=== PATIENT | male | born 1940 | race Caucasian/White ===

== ENCOUNTER 2021-04-16 15:29 | Inpatient (IN) ==
[2021-04-17] MEDS ORDERED: ALBUTEROL 2.5 MG/3 ML NEB RESP TX PRN (07:51)
[2021-04-17] MEDS ORDERED: ONDANSETRON 4 MG/2 ML VIAL IV PRN (07:51)
[2021-04-17] MEDS: PANTOPRAZOLE 40 MG VIAL IV SCH (09:08)
[2021-04-18 04:38] LABS: ABG Base Excess -21.5 MMOL/L (-2.5-2.5); ABG HCO3 6.6 MMOL/L (20-26); ABG PCO2 21.9 MM HG (35-48); ABG PO2 214.8 MM HG (80-95); ABG TCO2 7.2 MMOL/L (23-27); Allen Test Positive; Pt O2 Delivery Device Ventilator
[2021-04-18 04:42] LABS: ABG PH 7.094 (7.35-7.45)
[2021-04-18] MEDS ORDERED: SODIUM BICARBONATE 50 MEQ/50 ML VIAL IV ONE ×2 (04:45→10:06)
[2021-04-18 06:55] LABS: Basophils % 0.1 % (0.0-0.8); Hematocrit 30.7 VOL% (42.0-52.0); Hemoglobin 9.9 GM/DL (14.0-18.0); Immature Granulocytes % 0.5 %; Immature Granulocytes Absolute 0.07 #; Lymphocytes # 0.2 10*3/uL (1.4-4.0); Lymphocytes % 1.2 % (21.2-54.2); Mean Corpuscular HGB Conc 32.2 GM/DL (32-36); Mean Corpuscular Volume 94.8 FL (87-102); Mean Platelet Volume 13.9 FL (9.6-12.0); Monocytes % 2.6 % (1.7-12.7); Neutrophils % 95.6 % (38.7-73.9); Platelet Count 95 T/CUMM (130-400); Red Blood Count 3.24 MC/CUMM (3.8-5.5); Red Cell Distribution Width 17.2 % (9.3-17.3)
[2021-04-18 06:59] LABS: INR 1.1; PT Patient Result 11.9 SECS (10.5-12.0)
[2021-04-18 07:21] LABS: Band Neutrophils 1 % (0-10); Lymphocytes 4 % (20-55); Platelet Estimate Decreased; Segmented Neutrophils 92 % (50-85); Total Cells Counted 100
[2021-04-18 07:22] LABS: Hypochromasia Slight; Microcytosis Slight
[2021-04-18] MEDS: PANTOPRAZOLE 40 MG VIAL IV SCH (08:35)
[2021-04-18] MEDS: SODIUM BICARB INJ 100 MEQ in DEXTROSE 5% NACL 0.45% 1,000 ML IV SCH ×2 (08:42→19:50)
[2021-04-18 09:41] LABS: Albumin 1.4 G/DL (3.4-5.0); Bilirubin,Total 0.4 MG/DL (0.2-1.0); Calcium 8.3 MG/DL (8.5-10.1); Total Protein 5.2 G/DL (6.4-8.2)
[2021-04-18 09:53] LABS: Osmolality,Calculated 312.1 MOS/KG (273-304)
[2021-04-18] MEDS: MEROPENEM 500 MG in SODIUM CHLORIDE 0.9% 100 ML IV SCH ×3 (09:56→20:53)
[2021-04-18] MEDS ORDERED: SODIUM POLYSTYRENE SULFATE 15 GM/60 ML BOTTLE PO ONE (13:30)
[2021-04-18 17:21] LABS: Calcium 7.5 MG/DL (8.5-10.1)
[2021-04-18 17:22] LABS: Osmolality,Calculated 323.4 MOS/KG (273-304)
[2021-04-18 17:23] LABS: Potassium 6.3 MMOL/L (3.5-5.1)
[2021-04-19] MEDS: MEROPENEM 500 MG in SODIUM CHLORIDE 0.9% 100 ML IV SCH (03:01)
[2021-04-19 04:02] LABS: ABG Base Excess -12.4 MMOL/L (-2.5-2.5); ABG HCO3 13.1 MMOL/L (20-26); ABG Oxygen Saturation 93.5 % (95-100); ABG PCO2 28.6 MM HG (35-48); ABG PH 7.278 (7.35-7.45); ABG PO2 73.3 MM HG (80-95)
[2021-04-19 05:33] LABS: Basophils % 0.1 % (0.0-0.8); Hematocrit 29.5 VOL% (42.0-52.0); Immature Granulocytes % 0.9 %; Immature Granulocytes Absolute 0.09 #; Lymphocytes # 0.1 10*3/uL (1.4-4.0); Lymphocytes % 1.3 % (21.2-54.2); Mean Corpuscular HGB Conc 30.5 GM/DL (32-36); Mean Corpuscular Volume 100.7 FL (87-102); Mean Platelet Volume 13.3 FL (9.6-12.0); Monocytes % 1.4 % (1.7-12.7); Neutrophils % 96.3 % (38.7-73.9); Platelet Count 71 T/CUMM (130-400); Red Blood Count 2.93 MC/CUMM (3.8-5.5); Red Cell Distribution Width 17.5 % (9.3-17.3); White Blood Count 9.9 T/CUMM (4-12)
[2021-04-19 05:47] LABS: Albumin 1.2 G/DL (3.4-5.0); Calcium 7.4 MG/DL (8.5-10.1); Osmolality,Calculated 323.2 MOS/KG (273-304); Potassium 5.7 MMOL/L (3.5-5.1); Total Protein 4.3 G/DL (6.4-8.2)
[2021-04-19] MEDS: SODIUM BICARB INJ 100 MEQ in DEXTROSE 5% NACL 0.45% 1,000 ML IV SCH ×2 (06:18→17:35)
[2021-04-19 06:42] LABS: Band Neutrophils 17 % (0-10); Lymphocytes 1 % (20-55); Platelet Estimate Decreased; Segmented Neutrophils 81 % (50-85); Total Cells Counted 100
[2021-04-19 06:43] LABS: Anisocytosis 2+; Macrocytosis 1+
[2021-04-19] MEDS ORDERED: LIDOCAINE 1%/EPI INJ 20 ML VIAL ONE (08:20)
[2021-04-19] MEDS ORDERED: BUPIVACAINE MPF 0.25% 30 ML VIAL ONE (08:21)
[2021-04-19] MEDS ORDERED: MIDAZOLAM 2 MG/2 ML VIAL ONE (09:18)
[2021-04-19] MEDS: PANTOPRAZOLE 40 MG VIAL IV SCH (09:28)
[2021-04-19] MEDS ORDERED: ROCURONIUM 50 MG/5 ML VIAL IV ONE (10:44)
[2021-04-19] MEDS ORDERED: PHENYLEPHRINE 10 MG/1 ML VIAL IV ONE (10:45)
[2021-04-19] MEDS ORDERED: SEVOFLURANE 1 UNIT/15 MINUTE INH ONE (11:11)
[2021-04-19] MEDS ORDERED: EPINEPHrine 1 MG/ML VIAL ONE (11:11)
[2021-04-19] MEDS ORDERED: SODIUM CHLORIDE 0.9% 250 ML IV ONE (11:11)
[2021-04-19] MEDS ORDERED: SODIUM BICARBONATE 50 MEQ/50 ML VIAL IV ONE (11:11)
[2021-04-20 04:13] LABS: ABG HCO3 17.9 MMOL/L (20-26); ABG Oxygen Saturation 97.5 % (95-100); ABG PCO2 28.4 MM HG (35-48); ABG PH 7.369 (7.35-7.45); ABG PO2 97.3 MM HG (80-95); ABG TCO2 15.3 MMOL/L (23-27); Allen Test Positive; Pt O2 Delivery Device Ventilator
[2021-04-20] MEDS: MEROPENEM 500 MG in SODIUM CHLORIDE 0.9% 100 ML IV SCH (04:16)
[2021-04-20] MEDS: SODIUM BICARB INJ 100 MEQ in DEXTROSE 5% NACL 0.45% 1,000 ML IV SCH ×4 (04:18→20:04)
[2021-04-20 05:10] LABS: Basophils % 0.1 % (0.0-0.8); Eosinophils % 0.1 % (0.00-10.9); Hematocrit 24.4 VOL% (42.0-52.0); Immature Granulocytes Absolute 0.12 #; Lymphocytes # 0.2 10*3/uL (1.4-4.0); Mean Corpuscular HGB Conc 32.8 GM/DL (32-36); Mean Corpuscular Volume 93.5 FL (87-102); Mean Platelet Volume 14.3 FL (9.6-12.0); Neutrophils % 95.8 % (38.7-73.9); Platelet Count 46 T/CUMM (130-400); Red Blood Count 2.61 MC/CUMM (3.8-5.5); Red Cell Distribution Width 17.3 % (9.3-17.3); White Blood Count 11.7 T/CUMM (4-12)
[2021-04-20 05:25] LABS: Alanine Aminotransferase 41 U/L (16-61); Albumin 0.9 G/DL (3.4-5.0); Alkaline Phosphatase 73 U/L (45-117); Aspartate Amino Transferase 168 U/L (0-37); Bilirubin,Total < 0.39 MG/DL (0.2-1.0); Blood Urea Nitrogen 157 MG/DL (7-18); Calcium 6.5 MG/DL (8.5-10.1); Carbon Dioxide 15 MMOL/L (21-32); Estimated Glom Filtration Rate 14 ML/MIN; Glucose 117 MG/DL (74-106); Osmolality,Calculated 329.5 MOS/KG (273-304); Potassium 4.8 MMOL/L (3.5-5.1); Sodium 139 MMOL/L (136-145); Total Protein 3.7 G/DL (6.4-8.2)
[2021-04-20 05:29] LABS: Hypochromasia 1+; Lymphocytes 3 % (20-55); Microcytosis 1+; Platelet Estimate Decreased; Segmented Neutrophils 96 % (50-85); Total Cells Counted 100
[2021-04-20] MEDS: FAMOTIDINE 20 MG/2 ML VIAL IV SCH ×2 (09:38→20:00)
[2021-04-21] MEDS: MEROPENEM 500 MG in SODIUM CHLORIDE 0.9% 100 ML IV SCH (04:24)
[2021-04-21 04:26] LABS: ABG Base Excess -6.1 MMOL/L (-2.5-2.5); ABG HCO3 19.4 MMOL/L (20-26); ABG Oxygen Saturation 98.6 % (95-100); ABG PH 7.398 (7.35-7.45); ABG TCO2 16.6 MMOL/L (23-27)
[2021-04-21 06:05] LABS: Albumin 0.9 G/DL (3.4-5.0); Bilirubin,Total 0.6 MG/DL (0.2-1.0); Calcium 6.6 MG/DL (8.5-10.1); Potassium 5.2 MMOL/L (3.5-5.1); Total Protein 3.9 G/DL (6.4-8.2)
[2021-04-21] MEDS: FAMOTIDINE 20 MG/2 ML VIAL IV SCH ×2 (09:17→20:31)
[2021-04-21 12:38] LABS: Basophils % 0.1 % (0.0-0.8); Eosinophils % 0.1 % (0.00-10.9); Hematocrit 25.2 VOL% (42.0-52.0); Hemoglobin 7.7 GM/DL (14.0-18.0); Immature Granulocytes % 0.9 %; Immature Granulocytes Absolute 0.12 #; Lymphocytes # 0.2 10*3/uL (1.4-4.0); Lymphocytes % 1.6 % (21.2-54.2); Mean Corpuscular HGB Conc 30.6 GM/DL (32-36); Mean Corpuscular Volume 99.6 FL (87-102); Mean Platelet Volume 12.5 FL (9.6-12.0); Monocytes % 0.6 % (1.7-12.7); NRBC # 0.02 10*3/uL; Neutrophils % 96.7 % (38.7-73.9); Red Blood Count 2.53 MC/CUMM (3.8-5.5); Red Cell Distribution Width 17.4 % (9.3-17.3); White Blood Count 13.5 T/CUMM (4-12)
[2021-04-21 12:43] LABS: Platelet Count 16 T/CUMM (130-400)
[2021-04-21 13:44] LABS: Band Neutrophils 2 % (0-10); Hypochromasia Slight; Lymphocytes 3 % (20-55); Segmented Neutrophils 95 % (50-85); Total Cells Counted 100
[2021-04-21 13:45] LABS: Anisocytosis Slight; Platelet Estimate Decreased
[2021-04-21] MEDS: LEVOFLOXACIN INJ 500 MG/100 ML PREMIX IV SCH (14:30)
[2021-04-21] MEDS: methylPREDNISolone SOD SUC 40 MG/1 ML VIAL IV SCH (14:30)
[2021-04-21] MEDS: SODIUM BICARB INJ 100 MEQ in DEXTROSE 5% NACL 0.45% 1,000 ML IV SCH (18:05)
[2021-04-22] MEDS: methylPREDNISolone SOD SUC 40 MG/1 ML VIAL IV SCH ×2 (01:21→13:46)
[2021-04-22 03:38] LABS: ABG Base Excess -4.5 MMOL/L (-2.5-2.5); ABG HCO3 20.6 MMOL/L (20-26); ABG Oxygen Saturation 97.9 % (95-100); ABG PCO2 33.3 MM HG (35-48); ABG PH 7.384 (7.35-7.45); ABG TCO2 18.6 MMOL/L (23-27)
[2021-04-22 04:23] LABS: Basophils % 0.1 % (0.0-0.8); Hematocrit 22.9 VOL% (42.0-52.0); Hemoglobin 7.3 GM/DL (14.0-18.0); Immature Granulocytes % 0.5 %; Immature Granulocytes Absolute 0.05 #; Lymphocytes # 0.1 10*3/uL (1.4-4.0); Lymphocytes % 1.3 % (21.2-54.2); Mean Corpuscular HGB Conc 31.9 GM/DL (32-36); Mean Corpuscular Volume 95.8 FL (87-102); Mean Platelet Volume 13.2 FL (9.6-12.0); Monocytes % 0.6 % (1.7-12.7); Neutrophils % 97.5 % (38.7-73.9); Red Blood Count 2.39 MC/CUMM (3.8-5.5); Red Cell Distribution Width 16.9 % (9.3-17.3); White Blood Count 9.8 T/CUMM (4-12)
[2021-04-22 04:24] LABS: Platelet Count 25 T/CUMM (130-400)
[2021-04-22 04:52] LABS: Calcium 6.4 MG/DL (8.5-10.1); Osmolality,Calculated 344.4 MOS/KG (273-304); Potassium 4.6 MMOL/L (3.5-5.1)
[2021-04-22 04:53] LABS: Band Neutrophils 1 % (0-10); Lymphocytes 1 % (20-55); Platelet Estimate Decreased; Segmented Neutrophils 96 % (50-85); Total Cells Counted 100
[2021-04-22 04:54] LABS: Hypochromasia 1+
[2021-04-22] MEDS ORDERED: SODIUM CHLORIDE 0.9% 1,000 ML IV PRN (09:00)
[2021-04-22] MEDS: FAMOTIDINE 20 MG/2 ML VIAL IV SCH ×2 (09:02→19:59)
[2021-04-22] MEDS ORDERED: MIDODRINE 5 MG TABLET PO PRN (09:04)
[2021-04-22] MEDS: SODIUM BICARB INJ 100 MEQ in DEXTROSE 5% NACL 0.45% 1,000 ML IV SCH (17:33)
[2021-04-22 19:27] LABS: Hematocrit 26.4 VOL% (42.0-52.0); Hemoglobin 8.5 GM/DL (14.0-18.0)
[2021-04-23] MEDS: methylPREDNISolone SOD SUC 40 MG/1 ML VIAL IV SCH ×2 (01:25→13:12)
[2021-04-23 04:28] LABS: ABG Oxygen Saturation 96.5 % (95-100); ABG PCO2 32.1 MM HG (35-48); ABG PH 7.412 (7.35-7.45); ABG PO2 93.6 MM HG (80-95)
[2021-04-23 04:48] LABS: Hematocrit 22.9 VOL% (42.0-52.0); Hemoglobin 7.6 GM/DL (14.0-18.0); Immature Granulocytes % 0.7 %; Immature Granulocytes Absolute 0.05 #; Lymphocytes # 0.2 10*3/uL (1.4-4.0); Lymphocytes % 2.2 % (21.2-54.2); Mean Corpuscular HGB Conc 33.2 GM/DL (32-36); Mean Corpuscular Volume 90.5 FL (87-102); Monocytes % 0.8 % (1.7-12.7); Neutrophils % 96.3 % (38.7-73.9); Red Blood Count 2.53 MC/CUMM (3.8-5.5); Red Cell Distribution Width 17.6 % (9.3-17.3); White Blood Count 7.7 T/CUMM (4-12)
[2021-04-23 04:51] LABS: Platelet Count 18 T/CUMM (130-400)
[2021-04-23] MEDS ORDERED: SODIUM CHLORIDE 0.9% 1,000 ML IV PRN (05:06)
[2021-04-23 05:10] LABS: Hypochromasia 1+; Lymphocytes 1 % (20-55); Microcytosis 1+; Platelet Estimate Decreased; Segmented Neutrophils 99 % (50-85); Total Cells Counted 100
[2021-04-23] MEDS: FAMOTIDINE 20 MG/2 ML VIAL IV SCH (09:15)
[2021-04-23 09:54] LABS: Albumin 0.9 G/DL (3.4-5.0); Bilirubin,Total 0.7 MG/DL (0.2-1.0); Calcium 6.8 MG/DL (8.5-10.1); Osmolality,Calculated 330.4 MOS/KG (273-304); Potassium 4.4 MMOL/L (3.5-5.1)
[2021-04-23] MEDS ORDERED: ALBUMIN 25% 25 GM/100 ML VIAL IV ONE (10:24)
[2021-04-23 12:51] VITALS: BP 112/59
[2021-04-23] MEDS: LEVOFLOXACIN INJ 500 MG/100 ML PREMIX IV SCH (13:12)
[2021-04-23 13:14] LABS: Hematocrit 31.2 VOL% (42.0-52.0); Hemoglobin 10.1 GM/DL (14.0-18.0); Platelet Count 43 T/CUMM (130-400)
[2021-04-23 22:35] LABS: Calcium 6.6 MG/DL (8.5-10.1); Osmolality,Calculated 334.5 MOS/KG (273-304); Potassium 4.1 MMOL/L (3.5-5.1)
[2021-04-24] MEDS: methylPREDNISolone SOD SUC 40 MG/1 ML VIAL IV SCH (01:10)
[2021-04-24 04:31] LABS: ABG Base Excess -5.2 MMOL/L (-2.5-2.5); ABG HCO3 17.8 MMOL/L (20-26); ABG Oxygen Saturation 96.7 % (95-100); ABG PCO2 26.5 MM HG (35-48); ABG PH 7.444 (7.35-7.45); ABG PO2 94.2 MM HG (80-95); ABG TCO2 18.6 MMOL/L (23-27); Allen Test Positive; Pt O2 Delivery Device Ventilator
[2021-04-24 04:35] LABS: Hematocrit 28.6 VOL% (42.0-52.0); Hemoglobin 9.4 GM/DL (14.0-18.0); Immature Granulocytes % 1.4 %; Lymphocytes # 0.2 10*3/uL (1.4-4.0); Lymphocytes % 2.2 % (21.2-54.2); Mean Corpuscular HGB Conc 32.9 GM/DL (32-36); Mean Corpuscular Volume 91.4 FL (87-102); Mean Platelet Volume 12.1 FL (9.6-12.0); Monocytes % 0.7 % (1.7-12.7); Neutrophils % 95.7 % (38.7-73.9); Red Blood Count 3.13 MC/CUMM (3.8-5.5); Red Cell Distribution Width 17.5 % (9.3-17.3); White Blood Count 7.2 T/CUMM (4-12)
[2021-04-24 04:42] LABS: Platelet Count 32 T/CUMM (130-400)
[2021-04-24 04:59] LABS: Bilirubin,Total 0.7 MG/DL (0.2-1.0); Calcium 6.8 MG/DL (8.5-10.1); Osmolality,Calculated 336.5 MOS/KG (273-304); Potassium 4.4 MMOL/L (3.5-5.1); Total Protein 4.1 G/DL (6.4-8.2)
[2021-04-24 05:08] LABS: Hypochromasia 1+; Lymphocytes 2 % (20-55); Microcytosis 1+; Platelet Estimate Decreased; Segmented Neutrophils 97 % (50-85); Total Cells Counted 100
[2021-04-24] MEDS: FAMOTIDINE 20 MG/2 ML VIAL IV SCH (08:13)
[2021-04-24] MEDS ORDERED: ALBUMIN 25% 25 GM/100 ML VIAL IV ONE (08:21)
[2021-04-24] MEDS ORDERED: FUROSEMIDE INJ 240 MG in SODIUM CHLORIDE 0.9% 50 ML IV ONE (09:30)
[2021-04-24] MEDS ORDERED: predniSONE 20 MG TABLET PO SCH (09:30)
[2021-04-25] MEDS ORDERED: FAMOTIDINE 20 MG TABLET NG SCH (09:00)
== END 2021-04-24 15:28 | DRG 4 ==
LOC: SUATTDRO 04-17 07:07 → N.ICU 04-17 07:07
PROVIDERS: ADMIT Internal Medicine; ATTEND Internal Medicine